=== PATIENT | female | born 1970 | race African-American/Black ===

== ENCOUNTER 2021-02-15 16:02 | Inpatient (IN) | payer OTHER ==
[2021-02-15 17:32] VITALS: BMI 36.1
[2021-02-15] MEDS ORDERED: MAGNESIUM HYDROX 2400MG/30ML ORAL SUSPENSION 30 ML CUP PO PRN (17:53)
[2021-02-15] MEDS ORDERED: IBUPROFEN 400 MG TABLET (FP) PO PRN (17:53)
[2021-02-15] MEDS ORDERED: METHOCARBAMOL 500 MG TABLET PO PRN (17:53)
[2021-02-15] MEDS ORDERED: MENTHOL/PHENOL 1 EACH UD MM PRN (17:53)
[2021-02-15] MEDS ORDERED: hydrOXYzine PAMOATE 25 MG CAPSULE (FP) PO PRN (17:53)
[2021-02-15] MEDS ORDERED: MAGNESIUM CITRATE 300 ML BOTTLE PO PRN (17:53)
[2021-02-15] MEDS ORDERED: ONDANSETRON *ODT* 4 MG TABLET SL PRN (17:53)
[2021-02-15] MEDS ORDERED: MAG HYDROX/AL HYDROX/SIMETH 30 ML UNIT-DOSE CUP PO PRN (17:53)
[2021-02-15] MEDS ORDERED: ACETAMINOPHEN 325 MG TABLET (FP) PO PRN ×2 (17:53)
[2021-02-15] MEDS ORDERED: BISMUTH SUBSALICYLATE 524 MG/30 ML PO PRN (17:53)
[2021-02-15] MEDS ORDERED: INSULIN (NOVOLOG) ASPART 100 UNITS/ML 10ML VIAL ONE (21:24)
[2021-02-15] MEDS: INSULIN SLIDING SCALE (NOVOLOG) 1 VIAL SQ SCH ×2 (21:25→23:44)
[2021-02-15] MEDS: THIAMINE HCL 100 MG TABLET (FP) PO SCH (23:39)
[2021-02-15] MEDS: diazePAM 5 MG TABLET PO SCH (23:40)
[2021-02-15] MEDS: MELATONIN 5 MG TABLETS PO SCH (23:45)
[2021-02-16] MEDS: diazePAM 5 MG TABLET PO SCH ×3 (05:43→18:12)
[2021-02-16] MEDS ORDERED: INSULIN SLIDING SCALE (NOVOLOG) 1 VIAL SQ ONE ×2 (07:47→11:37)
[2021-02-16] MEDS: NICOTINE 10 MG CARTRIDGE (INHALER) IH PRN (07:49)
[2021-02-16] MEDS: INSULIN SLIDING SCALE (NOVOLOG) 1 VIAL SQ SCH ×4 (08:41→21:08)
[2021-02-16] MEDS: PRENATAL VITAMINS W/ FOLIC ACID TABLET (FP) PO SCH (10:40)
[2021-02-16] MEDS: PANTOPRAZOLE 40 MG TABLET PO SCH (10:40)
[2021-02-16 13:16] LABS: CHLORIDE 99 mmol/L (98-107); HEMATOCRIT 39.3 % (32.4-45.2); HEMOGLOBIN 13.5 GM/dL (10.7-15.3); MCH 30.7 pg (25.7-33.7); MCHC 34.3 g/dl (32.0-36.0); MEAN CELL VOLUME 89.7 fl (80-96); MEAN PLT VOLUME 8.9 fl (7.5-11.1); PLATELET COUNT 318 10^3/uL (134-434); RBC 4.38 M/mm3 (3.60-5.2); RDW 13.5 % (11.6-15.6); SODIUM 132 mmol/L (136-145); WHITE BLOOD COUNT 8.4 K/mm3 (4.0-10.0)
[2021-02-16 13:20] LABS: ANION GAP 10 MMOL/L (8-16); BLOOD UREA NITROGEN 10.2 mg/dL (7-18); CALCIUM 9.1 mg/dL (8.5-10.1); CO2 23 mmol/L (21-32)
[2021-02-16 13:22] LABS: ALBUMIN 3.1 g/dl (3.4-5.0)
[2021-02-16 13:23] LABS: SGOT/AST 15 U/L (15-37); SGPT/ALT 16 U/L (13-61)
[2021-02-16 13:24] LABS: BILIRUBIN,TOTAL 0.5 mg/dL (0.2-1); TOT PROT 7.2 g/dl (6.4-8.2)
[2021-02-16 13:27] LABS: ALK PHOS 118 U/L (45-117)
[2021-02-16 13:35] LABS: GLUCOSE,RANDOM 513 mg/dL (74-106)
[2021-02-16] MEDS: diazePAM 5 MG TABLET PO PRN (21:05)
[2021-02-16] MEDS: THIAMINE HCL 100 MG TABLET (FP) PO SCH (22:26)
[2021-02-16] MEDS: MELATONIN 5 MG TABLETS PO SCH (22:26)
[2021-02-16] MEDS: DIVALPROEX NA *ER* EXTEND REL 500 MG TABLET.SA (FP) PO SCH (22:26)
[2021-02-17] MEDS: diazePAM 5 MG TABLET PO SCH ×4 (00:05→23:00)
[2021-02-17] MEDS: INSULIN SLIDING SCALE (NOVOLOG) 1 VIAL SQ SCH ×4 (06:41→22:31)
[2021-02-17] MEDS: PRENATAL VITAMINS W/ FOLIC ACID TABLET (FP) PO SCH (10:28)
[2021-02-17] MEDS: PANTOPRAZOLE 40 MG TABLET PO SCH (10:28)
[2021-02-17] MEDS ORDERED: INSULIN SLIDING SCALE (NOVOLOG) 1 VIAL SQ ONE (11:41)
[2021-02-17] MEDS: NICOTINE 10 MG CARTRIDGE (INHALER) IH PRN (20:41)
[2021-02-17] MEDS: MELATONIN 5 MG TABLETS PO SCH (22:31)
[2021-02-17] MEDS: DIVALPROEX NA *ER* EXTEND REL 500 MG TABLET.SA (FP) PO SCH (22:31)
[2021-02-17] MEDS: THIAMINE HCL 100 MG TABLET (FP) PO SCH (22:31)
[2021-02-17] MEDS: INSULIN (LEVEMIR) 100 UNITS/ML UNITS SQ SCH (22:32)
[2021-02-17] MEDS: diazePAM 5 MG TABLET PO PRN (22:32)
[2021-02-18] MEDS: diazePAM 5 MG TABLET PO SCH ×2 (05:38→17:28)
[2021-02-18] MEDS: INSULIN (LEVEMIR) 100 UNITS/ML UNITS SQ SCH ×2 (06:05→22:20)
[2021-02-18] MEDS: INSULIN SLIDING SCALE (NOVOLOG) 1 VIAL SQ SCH ×4 (06:06→22:20)
[2021-02-18] MEDS: NICOTINE 10 MG CARTRIDGE (INHALER) IH PRN ×3 (08:13→22:25)
[2021-02-18] MEDS: QUEtiapine FUMARATE 300 MG TABLET PO SCH ×2 (10:35→22:19)
[2021-02-18] MEDS: PRENATAL VITAMINS W/ FOLIC ACID TABLET (FP) PO SCH (10:35)
[2021-02-18] MEDS: PANTOPRAZOLE 40 MG TABLET PO SCH (10:36)
[2021-02-18] MEDS: diazePAM 5 MG TABLET PO PRN (10:37)
[2021-02-18] MEDS ORDERED: INSULIN SLIDING SCALE (NOVOLOG) 1 VIAL SQ ONE (12:05)
[2021-02-18] MEDS ORDERED: FLUCONAZOLE 150 MG TABLET PO ONE (21:00)
[2021-02-18] MEDS: THIAMINE HCL 100 MG TABLET (FP) PO SCH (22:19)
[2021-02-18] MEDS: MELATONIN 5 MG TABLETS PO SCH (22:19)
[2021-02-18] MEDS: DIVALPROEX NA *ER* EXTEND REL 500 MG TABLET.SA (FP) PO SCH (22:19)
[2021-02-19] MEDS ORDERED: diazePAM 5 MG TABLET PO ONE (06:00)
[2021-02-19] MEDS ORDERED: INSULIN SLIDING SCALE (NOVOLOG) 1 VIAL SQ ONE (06:21)
[2021-02-19] MEDS: INSULIN (LEVEMIR) 100 UNITS/ML UNITS SQ SCH (07:01)
[2021-02-19] MEDS: INSULIN SLIDING SCALE (NOVOLOG) 1 VIAL SQ SCH ×2 (07:02→12:10)
[2021-02-19] MEDS: NICOTINE 10 MG CARTRIDGE (INHALER) IH PRN (08:35)
[2021-02-19 08:49] VITALS: BP 132/67; PULSE 73; TEMP 97.7
[2021-02-19] MEDS: PRENATAL VITAMINS W/ FOLIC ACID TABLET (FP) PO SCH (10:20)
[2021-02-19] MEDS: PANTOPRAZOLE 40 MG TABLET PO SCH (10:20)
[2021-02-19] MEDS: QUEtiapine FUMARATE 300 MG TABLET PO SCH (10:21)
[2021-02-19] MEDS ORDERED: metroNIDAZOLE 0.75% TOPICAL GEL 45 GM TUBE TP SCH (22:00)
== END 2021-02-19 12:30 | disposition other institution (70) | DRG 774 ==
LOC: YASAS 16:02 → Y3N 21:47
PROVIDERS: ADMIT Allergy & Immunology; ATTEND Allergy & Immunology
PROC: HZ2ZZZZ Detoxification Services for Substance Abuse Treatment (ICD-10-PCS; principal; 2021-02-15)
DX: F10.230 Alcohol dependence with withdrawal, uncomplicated (principal); F14.20 Cocaine dependence, uncomplicated; F17.210 Nicotine dependence, cigarettes, uncomplicated; F31.9 Bipolar disorder, unspecified; F19.282 Other psychoactive substance dependence with psychoactive substance-induced sleep disorder; F19.24 Other psychoactive substance dependence with psychoactive substance-induced mood disorder; F41.9 Anxiety disorder, unspecified; F32.9 Major depressive disorder, single episode, unspecified; I10 Essential (primary) hypertension; E11.9 Type 2 diabetes mellitus without complications; Z79.4 Long term (current) use of insulin; E88.09 Other disorders of plasma-protein metabolism, not elsewhere classified; M54.5 Low back pain; G89.29 Other chronic pain; Z86.59 Personal history of other mental and behavioral disorders; Z85.42 Personal history of malignant neoplasm of other parts of uterus; Z90.49 Acquired absence of other specified parts of digestive tract; Z98.890 Other specified postprocedural states; Z56.0 Unemployment, unspecified
CPT/HCPCS: 36415; 80053; 80164; 82962; 83036; 84295; 85027; 86780; C9803; U0003; U0005